=== PATIENT | female | born 1985 | race African-American/Black ===

== ENCOUNTER 2018-01-11 16:25 | Emergency (ER) | payer SELFPAY ==
[~2018-01-11] VITALS: Ht 165.1 cm; Wt 70.0 kg
[2018-01-11] MEDS ORDERED: HYDROCODONE/ACETAMINOPHEN 5/325MG TABLET PO ONE (18:15)
[2018-01-11] MEDS ORDERED: KETOROLAC 60MG/2ML VIAL IM ONE (18:15)
[2018-01-11] MEDS ORDERED: ONDANSETRON 4MG ODT PO ONE (18:15)
[2018-01-11 20:08] VITALS: BP 117/64
== END 2018-01-11 20:28 | disposition home or self-care (01) ==
LOC: ER 19:20
DX: M54.42 Lumbago with sciatica, left side (principal); S50.01XA Contusion of right elbow, initial encounter; M25.552 Pain in left hip; W01.0XXA Fall on same level from slipping, tripping and stumbling without subsequent striking against object, initial encounter; Y93.89 Activity, other specified; Y92.89 Other specified places as the place of occurrence of the external cause; J45.909 Unspecified asthma, uncomplicated; Z97.0 Presence of artificial eye; Z88.2 Allergy status to sulfonamides
CPT/HCPCS: 72100; 73080; 73502; 81025; 96372; 99284; J1885; Q0162